=== PATIENT | male | born 1960 | race Caucasian/White ===

== ENCOUNTER 2022-10-09 06:39 | Day surgery (SDC) | payer OTHER ==
[~2022-10-09] VITALS: Ht 175.3 cm; Wt 89.4 kg
[~2022-10-09 06:39] MED LIST: ASPIRIN LOW81 M1 PO; GLIPIZIDE10 M3 PO; LIPITOR40 M1 PO; LISINOPRIL20 M1 PO; MAXZIDE PO; METFORMIN HCL1000 MG PO
[2022-10-09] MEDS ORDERED: OMEPRAZOLE20 MG PO (08:27)
[2022-10-09 08:36] VITALS: BP 102/55
== END 2022-10-09 09:00 | disposition designated cancer center or children's hospital (05) | DRG 392 ==
LOC: ENDO 06:39 → ORM 08:00 → ENDO 09:00
PROVIDERS: ATTEND Surgery
PROC: 0DB48ZX Excision of Esophagogastric Junction, Via Natural or Artificial Opening Endoscopic, Diagnostic (ICD-10-PCS; principal; 2022-10-09)
PROC: 0DB78ZX Excision of Stomach, Pylorus, Via Natural or Artificial Opening Endoscopic, Diagnostic (ICD-10-PCS; 2022-10-09)
DX: K21.00 Gastro-esophageal reflux disease with esophagitis, without bleeding (principal); K29.70 Gastritis, unspecified, without bleeding; K44.9 Diaphragmatic hernia without obstruction or gangrene; I10 Essential (primary) hypertension; Z79.84 Long term (current) use of oral hypoglycemic drugs